=== PATIENT | female | born 1970 | race Caucasian/White ===

== ENCOUNTER 2018-02-26 22:43 | Emergency (ER) | payer OTHER ==
[~2018-02-26] VITALS: Ht 170.2 cm; Wt 97.5 kg
[~2018-02-26 22:43] MED LIST: ANTIVERT 25 MG25 M1 PO; BEE POLLEN500 M2; CALCIUM-MAG-ZI1 EACH PO; COCONUT OIL1000 MG PO; DILAUDID2 MG PO; FISH OIL CONC1000 M1 PO; FLAX OIL1000 MG PO; GLUCOSAMINE HC500 MG PO; IBU-6600 MG PO; MACROBID 100 M100 MG PO; MELATONIN5 M7 PO; MOTRIN800 MG PO; PAPAYA ENZYME1 EAC1 PO; POTASSIUM GLUC500 MG; TRAMADOL50 MG PO; TYLENOL #31 TAB PO; VALERIAN ROOT PO; VITAMIN B121000 MC2 PO; VITAMIN D1000 IU PO; VITAMIN D250000 UNIT PO; VITAMIN E400 UNIT PO; VOLTAREN75 MG PO
[2018-02-26 23:11] LABS: ABSOLUTE BASOPHIL COUNT 0.1 /CUMM (0.0-0.2); ABSOLUTE EOSINOPHIL COUNT 0.2 /CUMM (0.0-0.7); ABSOLUTE GRANULOCYTE CT 6.4 /CUMM (1.4-6.5); ABSOLUTE LYMPH COUNT 3.9 /CUMM (1.2-3.4); ABSOLUTE MONOCYTE COUNT 0.9 /CUMM (0.10-0.60); BASOPHIL % 0.5 % (0.0-2.0); EOSINOPHIL % 1.4 % (0-5); GRANULOCYTE % 56.1 % (42.2-75.2); HEMATOCRIT 39.2 % (37-47); MEAN CORPUSCULAR HGB 29.3 PG (27.0-31.0); MEAN CORPUSCULAR HGB CONC 33.7 G/DL (33.0-37.0); MEAN PLATELET VOLUME 8.3 FL (7.4-10.4); PLATELET COUNT 310 /CUMM (130-400); RBC DISTRIBUTION WIDTH 14.1 % (11.5-14.5); RED BLOOD CELL CT 4.51 /CUMM (4.20-5.40); WHITE BLOOD CELL COUNT 11.4 /CUMM (4.8-10.8)
--- NOTE | 2018-02-27 01:21 | ED GI/GU/ABDOMINAL COMPLAINT ---
History of Present Illness General Chief Complaint: Female Urogenital Problems Stated Complaint: "BAD CRAMPS, VAGINAL BLEEDING, DIARRHEA" PER PT Source: patient, old records Exam Limitations: no limitations Vital Signs & Intake/Output Vital Signs & Intake/Output Vital Signs Date Time Temp Pulse Resp B/P B/P Pulse O2 O2 Flow FiO2 Mean Ox Delivery Rate 02/269 97.6 102 18 141/95 98 Room Air ED Intake and Output 02/27 0000 02/26 1200 Intake Total Output Total Balance Patient 215 lb Weight Allergies Coded Allergies: Penicillins (Severe, ANAPHYLAXIS 07/29/17) venom-honey bee (Severe, ANAPHYLAXIS 07/29/17) latex (Intermediate, SKIN RASH 07/29/17) oxycodone (Intermediate, ITCHING 07/29/17) cucumber (Mild, CHEST PAIN 07/29/17) strawberry (Mild, ITCHY RASH 07/29/17) adhesive (SKIN RASH 07/29/17) Reconcile Medications Calcium Carb/D3/Magnesium/Zinc (Lhanmtx-Yws-Ygby-Vit D Tablet) 333 MG-200 UNIT- 133 MG-5 MG TABLET 1 TAB PO DAILY SUPPLEMENT (Reported) Coconut Oil 1,000 MG CAPSULE 1 CAP PO DAILY SUPPLEMENT (Reported) Ergocalciferol (Vitamin D2) (Vitamin D2) 50,000 UNIT CAPSULE 1 CAP PO QSUN VITAMIN SUPPORT (Reported) Glucosamine HCl 500 MG TABLET 3 TAB PO DAILY SUPPLEMENT (Reported) Melatonin 5 MG TABLET 1 TAB PO QPM SLEEP (Reported) Nitrofurantoin Monohyd/M-Cryst (Macrobid 100 MG Capsule) 100 MG CAPSULE 1 CAP PO BID UTI with food [place]-3 Fatty Acids (Fish Oil Concentrate) 1,000 MG CAPSULE 1 CAP PO DAILY SUPPLEMENT (Reported) Papaya (Papaya Enzyme) 1 EACH TABLET 1 TAB PO DAILY SUPPLEMENT (Reported) Valerian Root 100 MG CAPSULE 1 CAP PO DAILY SUPPLEMENT (Reported) Vitamin E Mixed (Vitamin E) 400 UNIT CAPSULE 1 CAP PO DAILY VITAMIN SUPPORT ( Reported) Triage Note: PT TO TRIAGE C/O DIARRHEA, HEADACHE AND VAGINAL BLEEDING X1 WEEK. HX HYSTERCTOMY, COLON LESIONS AND ENDOMETRIOSIS. Triage Nurses Notes Reviewed? yes LMP (ages 10-50): hysterectomy ? n Is pt currently ? No Onset: Last week Duration: day(s):, constant, continues in ED Timing: recent history Quality/Severity: aching, severe Location: generalized abdomen, suprapubic Radiation: no radiation Activities at Onset: rest Prior Abdominal Problems: none Past Sexual History: Unobtainable at this time Modifying Factors: Worsens With: movement, palpation. Associated Symptoms: abdominal pain, diarrhea, fatigue, loss of appetite, nausea /vomiting HPI: 1 week prior to admission patient complains of increasing myalgia joint pain with anorexia frequent loose watery stool low-grade fever lower abdominal discomfort with vaginal spotting.. She denies chest pain cough shortness breath headache dysuria rash. Past History Travel History Traveled to [place] past 21 day No Medical History Any Pertinent Medical History? 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 No Review of Systems Review of Systems Constitutional: Reports: see HPI, fever, malaise. EENTM: Reports: no symptoms. Respiratory: Reports: no symptoms. Cardiovascular: Reports: no symptoms. GI: Reports: see HPI, abdominal pain, diarrhea, nausea. Genitourinary: Reports: see HPI. Musculoskeletal: Reports: no symptoms. Skin: Reports: no symptoms. Neurological/Psychological: Reports: no symptoms. Hematologic/Endocrine: Reports: no symptoms. Immunologic/Allergic: Reports: no symptoms. All Other Systems: Reviewed and Negative Physical Exam Physical Exam General Appearance: well developed/nourished, alert, awake, anxious, moderate distress, obese Head: atraumatic, normal appearance Eyes: Bilateral: normal appearance, PERRL, EOMI, normal inspection. Ears, Nose, Throat, Mouth: hearing grossly normal, Dry mucous membranes Neck: normal inspection, supple, full range of motion, normal alignment Respiratory: normal breath sounds, chest non-tender, no respiratory distress, quiet respiration, lungs clear Cardiovascular: regular rate/rhythm, normal peripheral pulses, norml femoral pulses equa Peripheral Pulses: 4+ carotid (R), 4+ carotid (L) Gastrointestinal: normal bowel sounds, soft, no organomegaly, tenderness ( diffuse, mild) Back: normal inspection, normal range of motion Extremities: normal range of motion, no ligament instability Neurologic/Psych: no motor/sensory deficits, awake, alert, oriented x 3, normal gait, normal mood/affect, safety and occupational health manager II-XII nml as tested Skin: intact, normal color, warm/dry Core Measures ACS in differential dx? No Sepsis Present: No Sepsis Focused Exam Completed? No Progress Differential Diagnosis: diverticulitis, hepatitis, pancreatitis, UTI/pyelo, Lyme , babesiosis Plan of Care: Orders Procedure Date/time Status Add-on Test (ER Only) 02/27 210 Active Add-on Test (ER Only) 02/27 003 Active LIPASE 02/26 2305 Complete URINALYSIS 02/26 2250 Complete COMPREHENSIVE METABOLIC PANEL 02/26 2250 Complete CBC WITHOUT DIFFERENTIAL 02/26 2250 Complete Current Medications Sig/Mary Start time Last Medication Dose Stop Time Status Admin Doxycycline Hyclate 100 MG ONCE ONE 02/27 215 AC 02/27 (Vibramycin) 02/28 320 0242 Sodium Chloride 100 ML (Normal Saline 0.9%) Laboratory Tests 02/26/18 2358: Urine Color YEL, Urine Clarity HAZY H, Urine pH 6.0, Ur Specific [place] 1.015, Urine Protein NEG, Urine Ketones NEG, Urine Nitrite NEG, Urine Bilirubin NEG, Urine Urobilinogen 0.2, Ur Leukocyte Esterase LARGE H, Ur Microscopic SEDIMENT EXAMINED, Urine RBC 3-5, Urine WBC 15-25 H, Ur Epithelial Cells FEW, Urine Bacteria FEW H, Urine Mucus FEW, Urine Hemoglobin NEG, Urine Glucose NEG 02/26/18 2305: Anion Gap 10, Estimated GFR > 60, BUN/Creatinine Ratio 20.0, Glucose 85, Calcium 9.8, Total Bilirubin 0.3, AST 306 H, ALT 81 H, Alkaline Phosphatase 76, Total Protein 7.6, Albumin 4.6, Globulin 3.0, Albumin/Globulin Ratio 1.5, Lipase 109, CBC w Diff NO MAN DIFF REQ, RBC 4.51, MCV 87.0, MCH 29.3, MCHC 33.7, RDW 14.1, MPV 8.3, Gran % 56.1, Lymphocytes % 34.4, Monocytes % 7.6, Eosinophils % 1.4, Basophils % 0.5, Absolute Granulocytes 6.4, Absolute Lymphocytes 3.9 H, Absolute Monocytes 0.9 H, Absolute Eosinophils 0.2, Absolute Basophils 0.1 Diagnostic Imaging: Viewed by Me: CT Scan. Discussed w/RAD: CT Scan. Radiology Impression: No acute findings of the abdomen or pelvis. No inflammatory changes of the bowel. No evidence of rectovaginal fistula. Initial ED EKG: none Departure Departure Time of Disposition: 303 Disposition: HOME OR SELF CARE Condition: Stable Clinical Impression Primary Impression: Suspected Lyme disease Secondary Impressions: Diarrhea Referrals: Robert BAINS,Gunnar Shen (PCP/Family) Departure Forms: Customer Survey General Discharge Information Prescriptions: Current Visit Scripts Doxycycline Hyclate (Vibramycin) 1 CAP PO BID #42 CAP Prednisone 1 TAB PO BID #10 TAB Ibuprofen 1 TAB PO Q6P PRN pain #50 TAB with food Tramadol HCl (Ultram) 1-2 TAB PO Q6P PRN severe pain #30 TAB
--- NOTE | 2018-02-27 01:54 | CT SCAN REPORT ---
EXAMINATION: CT ABDOMEN AND PELVIS WITH CONTRAST CLINICAL INFORMATION: Fever. Diarrhea. Vaginal spotting, status post hysterectomy. COMPARISON: 07/29/2017 TECHNIQUE: Multidetector volumetric imaging was performed of the abdomen and pelvis following IV administration of 94 mL of Optiray 320 intravenous contrast. Sagittal and coronal reformatted images were obtained on the technologist's workstation. DLP: 688 mGy-cm FINDINGS: LUNG BASES: The visualized lung bases are unremarkable. LIVER, GALLBLADDER, AND BILIARY TREE: The liver is normal in size, shape, and attenuation. No focal hepatic lesion or biliary ductal dilatation is present. The gallbladder is contracted with no evidence of radiopaque gallstones, gallbladder wall thickening, or obvious pericholecystic inflammatory changes. PANCREAS: Unremarkable. SPLEEN: Unremarkable. ADRENAL GLANDS: Unremarkable. KIDNEYS AND URETERS: The kidneys are normal in size, shape, and attenuation. No hydronephrosis, hydroureter, or calculi seen. No perinephric stranding. BLADDER: Unremarkable. GASTROINTESTINAL TRACT: The stomach is unremarkable. The small bowel is normal in caliber. There is no obstruction. Normal appendix. No colonic wall thickening or inflammatory change. Moderate stool burden within the right hemicolon. No free air or free fluid. ABDOMINAL WALL: No significant hernia is appreciated. LYMPH NODES: Normal. VASCULAR: Unremarkable. PELVIC VISCERA: The uterus is surgically absent. No adnexal mass. The vagina is grossly unremarkable. OSSEOUS STRUCTURES: No acute or suspicious osseous abnormality. Mild degenerative changes of the spine. IMPRESSION: No acute findings of the abdomen or pelvis. No inflammatory changes of the bowel. No evidence of rectovaginal fistula.
[2018-02-27] MEDS ORDERED: PREDNISONE20 M1 PO (03:08)
[2018-02-27] MEDS ORDERED: VIBRAMYCIN100 MG PO (03:08)
[2018-02-27] MEDS ORDERED: IBUPROFEN600 M1 PO (03:08)
[2018-02-27] MEDS ORDERED: ULTRAM50 M1 PO (03:08)
[2018-02-27 03:40] VITALS: BP 138/88
== END 2018-02-27 03:41 ==
LOC: ERH 22:43
PROVIDERS: Emergency Medicine
DX: M25.50 Pain in unspecified joint (principal); R19.7 Diarrhea, unspecified; R50.9 Fever, unspecified; R10.30 Lower abdominal pain, unspecified; N93.9 Abnormal uterine and vaginal bleeding, unspecified
CPT/HCPCS: 86317; 87798; 74177; 81001; 96374; 96375; J0131; J2405; J2930; J3370